=== PATIENT | female | born 1945 | race Caucasian/White ===

== ENCOUNTER → 2018-09-17 | Day surgery (SDC) | payer MEDICARE, BC ==
[~2018-09-17] MED LIST: ASPIRIN81 MG PO; B12 SHOTS INJ; BAYER ASPIRIN325 M1 PO; BENICAR40 MG PO; BETA CAROTENE PO; CENTRUM SILVER1 EAC3 PO; CHLORTHALIDONE25 MG PO; FARXIGA PO; FENTANYL CITRATE/PF 100MCG/2 ML INJ ONE; FISH OIL 1,2001 EACH PO; FLAXSEED OIL1000 MG PEG; HAIR, SKIN & N1 EAC1 PO; HYDRALAZINE HCL25 MG PO; METHYLDOPA PO; MIDAZOLAM HCL 2 MG/2 ML VIAL ONE; OR PHACO EYE KIT ONE; PREOP PHACO EYE KIT ONE; Z VITAMIN E PO; Z.0.AMARYL1 MG PO; Z.0.AVAPRO300 MG PO; Z.0.BYSTOLIC10 MG PO; Z.0.LASIX20 MG PO; Z.0.NORVASC5 MG PO; Z.0.OMEPRAZOLE20 M1 PO; Z.2.METFORMIN HCL500 PO
--- OUTSIDE RECORDS SUMMARY | 2018-09-17 09:26 | XMS REPORT ---
Author Author [facility] Address Unknown Phone Unavailable Care Team Providers Care Etiquette Teacher Name Role Phone ROBERTO JOVEL Unavailable Unavailable Problems This patient has no known problems. Allergies, Adverse Reactions, Alerts This patient has no known allergies or adverse reactions. Medications This patient has no known medications. Results Test Description Test Time Test Comments Text Results Atomic Results Result Comments BREAST ULTRASOUND BILATERAL 2018-03-14 17:16:09 - DIAG MAMM BILATERAL ERLINDA CAD DIGITAL W/AUGMENTATIONBILATERAL DIGITAL DIAGNOSTIC MAMMOGRAM 3D/2D WITH CAD WITH AUGMENTATION: 03/14/2018CLINICAL: Follow up to previous exam. Digital breast tomosynthesis was performed in addition to routine CC and MLO views. Current mammographic images were evaluated by either a [employer] M-Vu or a [employer] ImageChecker CAD (computer aided detection system). Comparison is made to exams dated 03/12/2017 mammogram, 11/16/2015 mammogram, and 11/03/2014 mammogram - [facility]. The tissue of both breasts is extremely dense, which lowers the sensitivity of mammography. Bilateral implants are in place. There are post operative findings in the right breast. No suspicious mass, architectural distortion, malignant type calcification, or lymph node abnormalit y detected. INCOMPLETE ASSESSMENT: ADDITIONAL IMAGING EVALUATION RECOMMENDEDUltrasound pending for additional evaluation. Resume annual screening mammography in one year. - BREAST ULTRASOUND BILATERALULTRASOUND OF BOTH BREASTS AND BOTH AXILLA: 03/14/2018Comparison is made to exams dated 03/12/2017 mammogram, 11/16/2015 mammogram, and 11/03/2014 mammogram - [facility]. Real-time ultrasound of both breasts and both axilla was performed. No abnormalities were seen sonographically in either breast or either axilla. Bilateral implants are intact. Clinical breast exam was unremarkable. IMPRESSION: BENIGN There is no sonographic evidence of malignancy. Patient has been informed that she has areas of dense breast tissue that could make it difficult to find a small cancer. A screening mammogram and supplemental ultrasound for dense breast tissue is recommended in 1 year.Alycia Magallanes M.D. dm/:03/14/2018 17:16:09 Pipe And Test Supervisor: Diana White , [facility] sent: BIRADS 1-2 Combo FU Letter Mammogram BI-RADS: 0 Indeterminate Ultrasound BI-RADS: 2 Benign DIAG MAMM BILATERAL ERLINDA CAD DIGITAL W/AUGMENTATION 2018-03-14 17:16:09 - DIAG MAMM BILATERAL ERLINDA CAD DIGITAL W/AUGMENTATIONBILATERAL DIGITAL DIAGNOSTIC MAMMOGRAM 3D/2D WITH CAD WITH AUGMENTATION: 03/14/2018CLINICAL: Follow up to previous exam. Digital breast tomosynthesis was performed in addition to routine CC and MLO views. Current mammographic images were evaluated by either a [employer] M-Vu or a [employer] ImageChecker CAD (computer aided detection system). Comparison is made to exams dated 03/12/2017 mammogram, 11/16/2015 mammogram, and [facility] The tissue of both breasts is extremely dense, which lowers the sensitivity of mammography. Bilateral implants are in place. There are post operative findings in the right breast. No suspicious mass, architectural distortion, malignant type calcification, or lymph node abnormality detected. INCOMPLETE ASSESSMENT: ADDITIONAL IMAGING EVALUATION RECOMMENDEDUltrasound pending for additional evaluation. Resume annual screening mammography in one year. - BREAST ULTRASOUND BILATERA LULTRASOUND OF BOTH BREASTS AND BOTH AXILLA: 03/14/2018Comparison is made to exams dated 03/12/2017 mammogram, 11/16/2015 mammogram, and [facility] Real-time ultrasound of both breasts and both axilla was performed. No abnormalities were seen sonographically in either breast or either axilla. Bilateral implants are intact. Clinical breast exam was unremarkable. IMPRESSION: BENIGN There is no sonographic evidence of malignancy. Patient has been informed that she has areas of dense breast tissue that could make it difficult to find a small cancer. A screening mammogram and supplemental ultrasound for dense breast tissue is recommended in 1 year.Alycia Magallanes M.D. dm/:03/14/2018 17:16:09 Pipe And Test Supervisor: Diana White [facility], [facility]: BIRADS 1-2 Combo FU Letter Mammogram BI-RADS: 0 Indeterminate Ultrasound BI-RADS: 2 Benign US RENAL RETROPERITONEAL COMP [place] [address] Patient Name: MEGAN KAYE MR #: [id number] : 1945 Age/Sex: 71/F Req #: [id number] Adm Physician: Ordered by: ROBERTO JOVEL MD Report #: [id number] Location: US Room/Bed: Procedure: [id number] US/US RENAL RETROPERITONEAL COMP Exam Date: 10/24/16 Exam Time: 1415 REPORT STATUS: Signed Retroperitoneal ultrasound Indication: Uncontrolled hypertension Technique: Select images from retroperitoneal ultrasound provided for interpretation: Comparison: No prior studies for comparison. Findings: The right kidney measures 10.7 cm in greatest length. The echotexture is increased. There is no evidence for mass. There is no collecting system dilatation or evidence of obstruction. No renal calculi evident. No adjacent free fluid or fluid collections. The left kidney measures 10.2 cm in greatest length. The echotexture is increased. There is no evidence for mass. There is no collecting system dilatation or evidence of obstruction. No renal calculi evident. No adjacent free fluid or fluid collections. Bladder is well distended and is normal. Bladder jets are visualized. No free fluid in the pelvis. Survey images of the liver and spleen demonstrate no focal abnormalities. The echotexture of the liver is increased suggestive of steatosis. IMPRESSION: Increased renal echotexture suggestive of medical renal disease. Signed by: Dr. Hemalatha Castanon MD on 10/24/2016 3:37 PM Dictated By: HEMALATHA CASTANON MD 153 Transcribed By: BRIA on 10/24/16 153 COPY TO: ROBERTO JOVEL MD
--- OUTSIDE RECORDS SUMMARY | 2018-09-17 09:26 | XMS REPORT | Clinical Summary ---
Author Author [facility] Address Unknown Phone Unavailable Care Team Providers Care Auditing Control Clerk Name Role Phone Belinda Woods MD PCP Allergies Comments Active Allergy Reactions Severity Noted Date Adhesive Tape-Silicones Rash Low 11/01/2016 Codeine GI 11/01/2016 Intolerance Latex 11/01/2016 Medications End Date Status Medication Sig Dispensed Refills Start Date Active nebivolol (BYSTOLIC) 10 Take 10 mg by 0 MG tablet mouth 2 (two) times a day. Active hydrALAZINE (APRESOLINE) Take 50 mg by 0 50 MG tablet mouth 3 (three) times a day. Active chlorthalidone (HYGROTEN) Take 25 mg by 0 25 MG tablet mouth every morning. Active olmesartan (BENICAR) 40 Take 40 mg by 0 MG tablet mouth every morning. Active metFORMIN (GLUCOPHAGE) Take 1,000 mg 0 1,000 mg tablet by mouth 2 (two) times a day with meals. Active glimepiride (AMARYL) 4 MG Take 4 mg by 0 tablet mouth 2 (two) times a day. Active dapagliflozin (FARXIGA) 5 Take 5 mg by 0 mg tablet mouth daily with breakfast. Active omeprazole (PriLOSEC) 20 Take 20 mg by 0 MG capsule mouth daily before breakfast. Active beta carotene 23905 UNIT Take 25,000 0 capsule Units by mouth every morning. Active iyqzakgf-hsq-ursz-FA-lute Take by 0 in ([employer]) mouth. 8 mg iron-400 mcg-300 mcg tablet Active cyanocobalamin, vitamin Place 2,500 0 B-12, (VITAMIN B-12) mcg under the 2,500 mcg tablet, tongue every sublingual morning. Active flaxseed 1,000 mg capsule Take 1,000 mg 0 by mouth daily with dinner. Active ASCORBIC ACID/VITAMIN Take 1 tablet 0 E/BIOTIN (HAIR, SKIN, by mouth NAILS WITH BIOTIN ORAL) every morning. Active cholecalciferol, vitamin Take 1,000 0 D3, (VITAMIN D3) 1,000 Units by unit tablet mouth every morning. Active Problems Problem Noted Date Preop testing 11/03/2016 Family History Medical History Relation Name Comments Heart attack Father Heart attack Mother Relation Name Status Comments Father Mother Social History Date Tobacco Use Types Packs/Day Years Used Never Smoker Smokeless Tobacco: Never Used Tobacco Cessation: Counseling Given: Yes Alcohol Use Drinks/Week oz/Week Comments Yes socially Sex Assigned at Date Recorded Not on file Industry Job Start Date Occupation Not on file Not on file Not on file Travel End Travel History Travel Start No recent travel history available. Last Filed Vital Signs Not on file Plan of Treatment Health Maintenance Due Date Last Done Comments BREAST CANCER SCREENING 1994 COLONOSCOPY SCREENING 1994 SHINGLES VACCINES (#1) 1994 65+ PNEUMOCOCCAL VACCINE 2009 (1 of 2 - PCV13) INFLUENZA VACCINE 09/12/2018 Implants Device Identifier Shelf Expiration Date Model / Serial / Lot Implanted Type Area Manufactur er 03/15/2018 2030 / / [id number] Stapler Skin Insorb Subcutclr Orthopedic INCISIVE Absrbl Staple Strl Ltxf - [id number] Trauma SURGICAL Implanted: Qty: 1 on 11/03/2016 by [employer] Samuel Mujica MD 09/09/2020 334 1202 / [id number] / [id number] Breast Imp Cpg Cohesive Iii Med Plastic or Right: Breast MENTOR Height High Proj 390cc - [id number] Cosmetic WORLDWIDE Implanted: 11/03/2016 (Quantity not [employer] on file) or Tissue Expanders or Sets Results Not on fileafter 09/16/2017 Insurance Type Payer Benefit Subscriber ID Effective Phone Address Plan / Dates Group Medicare MEDICARE MEDICARE xxxxxxxxxx 2009-P [place], PART [place] AND resent [place] B PPO BCBS BCBS xxxxxxxxxxxx 2009-P CHOICE resent PPO/LAURA HOLT PPO Advance Directives Patient has advance care planning documents, and code status on file. For more i nformation, please contact: Ayush Wallace [address] [place] [address] Date Inactivated Comments Code Status Date Activated 11/04/2016 3:42 PM Full Code 11/03/2016 2:16 PM Code Status decision reached by: Patient
[2018-09-17 12:27] VITALS: BP 153/77
== END | disposition home or self-care (01) ==
LOC: OR 09:17
PROVIDERS: ATTEND Ophthalmology
DX: H25.11 Age-related nuclear cataract, right eye (principal); Z88.6 Allergy status to analgesic agent; Z88.8 Allergy status to other drugs, medicaments and biological substances; I10 Essential (primary) hypertension; E11.9 Type 2 diabetes mellitus without complications; Z79.82 Long term (current) use of aspirin; Z79.84 Long term (current) use of oral hypoglycemic drugs
CPT/HCPCS: 36415; 66984; 82948; J2250; J3010; V2787

== ENCOUNTER → 2018-10-01 | Day surgery (SDC) | payer MEDICARE, BC ==
--- OUTSIDE RECORDS SUMMARY | 2018-10-01 09:18 | XMS REPORT | Clinical Summary ---
Author Author [facility] Organization [facility] Address Unknown Phone Unavailable Care Team Providers Care [place] Planning Manager Name Role Phone Belinda Woods MD PCP [...] mouth daily before breakfast. Active beta carotene 36450 UNIT Take 25,000 0 capsule Units by mouth every morning. Active ucjoifpo-gts-bbbb-FA-lute Take by 0 in ([employer]) [...] Never Used Tobacco Cessation: Counseling Given: Yes Drinks/Week oz/Week Comments Alcohol Use socially Yes Sex Assigned at Date Recorded Not on [...] Area Manufactur er 03/15/2018 2030 / / [id number] Stapler Skin Insorb Subcutclr Orthopedic INCISIVE Absrbl Staple Strl Ltxf - [id number] Trauma SURGICAL Implanted: Qty: 1 on 11/03/2016 by [employer] Samuel Mujica MD at [facility] 09/09/2020 334 1202 / [id number] / [id number] Breast Imp Cpg Cohesive Iii Med Plastic or Right: Breast MENTOR Height High Proj 390cc - [id number] Cosmetic WORLDWIDE Implanted: 11/03/2016 at [facility] Implants [facility] (Quantity not on file) or Tissue Expanders or Sets Results Not on fileafter 09/30/2017 Insurance Type Payer Benefit Subscriber ID Effective Phone Address Plan / Dates Group Medicare MEDICARE MEDICARE xxxxxxxxxx 2009-P [place] resent [place] PPO BCBS BCBS xxxxxxxxxxxx 2009-P CHOICE resent PPO/LAURA HOLT PPO Advance Directives For more information, please contact: [phone] Patient Concrete Block Layer Explanation Type Date Recorded Advance Directives, 11/01/2016 3:39 PM Living Will and Medical Power of Asbestos Shingle Inspector Date Inactivated Comments Code Status Date Activated 11/04/2016 3:42 PM Full Code 11/03/2016 2:16 PM Code Status decision reached by: Patient
[2018-10-01 12:24] VITALS: BP 143/76
== END | disposition home or self-care (01) ==
LOC: OR 09:13
PROVIDERS: ATTEND Ophthalmology
DX: H25.12 Age-related nuclear cataract, left eye (principal); I10 Essential (primary) hypertension; E11.9 Type 2 diabetes mellitus without complications; Z88.6 Allergy status to analgesic agent; Z88.8 Allergy status to other drugs, medicaments and biological substances; Z79.82 Long term (current) use of aspirin; Z79.84 Long term (current) use of oral hypoglycemic drugs; Z85.3 Personal history of malignant neoplasm of breast; Z92.3 Personal history of irradiation
CPT/HCPCS: 36415; 66984; 82948; J2250; J3010; V2787